=== PATIENT | male | born 1960 | race Caucasian/White ===

== ENCOUNTER 2023-04-17 13:50 | Day surgery (SDC) | payer BC ==
[~2023-04-17] VITALS: Ht 172.7 cm; Wt 79.4 kg
[~2023-04-17 13:50] MED LIST: ATEN25 PO; RXOXYACE PO
[2023-04-17] MEDS ORDERED: ALLO100 PO (14:17)
[2023-04-17] MEDS ORDERED: LOSARTAN-HCTZ1 EAC5 PO (14:18)
--- NOTE | 2023-04-17 16:15 | NUR ---
04/17/23 1615 ANCELMO SMITH TOTAL OF 12.5 CC SALINE FOR INJECTION OF POLYPS
[2023-04-17 17:09] VITALS: BP 120/73
== END 2023-04-17 16:54 | disposition home or self-care (01) ==
LOC: ORSCSDS 13:50
PROVIDERS: Internal Medicine Gastroenterology
PROC: 0DBK8ZX Excision of Ascending Colon, Via Natural or Artificial Opening Endoscopic, Diagnostic (ICD-10-PCS; principal; 2023-04-17 15:15)
PROC: 0DBN8ZX Excision of Sigmoid Colon, Via Natural or Artificial Opening Endoscopic, Diagnostic (ICD-10-PCS; principal; 2023-04-17 15:15)
PROC: 0DBL8ZX Excision of Transverse Colon, Via Natural or Artificial Opening Endoscopic, Diagnostic (ICD-10-PCS; principal; 2023-04-17 15:15)
DX: Z12.11 Encounter for screening for malignant neoplasm of colon (principal); D12.3 Benign neoplasm of transverse colon; D12.2 Benign neoplasm of ascending colon; D12.5 Benign neoplasm of sigmoid colon; K57.30 Diverticulosis of large intestine without perforation or abscess without bleeding; K64.8 Other hemorrhoids; I10 Essential (primary) hypertension; Z87.891 Personal history of nicotine dependence; Z79.899 Other long term (current) drug therapy
CPT/HCPCS: 88305; J0461; J2001; J2405; J2704; J7120; Q9968

== ENCOUNTER 2024-01-21 09:08 | Day surgery (SDC) | payer BC ==
[~2024-01-21] VITALS: Ht 172.7 cm; Wt 78.2 kg
[~2024-01-21 09:08] MED LIST changes: +ALLO100 PO; +LOSARTAN-HCTZ1 EAC5 PO; +Lactated Ringer's 1,000 ML IV ONE; +propofoL 50 ML IV ONE
[2024-01-21] MEDS ORDERED: Lactated Ringer's 1,000 ML IV ONE (10:15)
[2024-01-21 11:29] VITALS: BP 127/56
== END 2024-01-21 11:31 | disposition home or self-care (01) ==
LOC: ORSCSDS 09:08
PROVIDERS: Internal Medicine Gastroenterology
PROC: 0DBH8ZX Excision of Cecum, Via Natural or Artificial Opening Endoscopic, Diagnostic (ICD-10-PCS; principal; 2024-01-21 10:15)
DX: Z12.11 Encounter for screening for malignant neoplasm of colon (principal); Z86.010 Personal history of colon polyps; D12.0 Benign neoplasm of cecum; K57.30 Diverticulosis of large intestine without perforation or abscess without bleeding; Z79.899 Other long term (current) drug therapy
CPT/HCPCS: 88305; J2704; J7120